=== PATIENT | female | born 1965 | race Caucasian/White ===

== ENCOUNTER 2025-06-06 09:01 | Outpatient (CLI) | payer BC | END 2025-06-06 09:02 | disposition home or self-care (01) | LOC: CSHRAD 09:01 | PROVIDERS: ATTEND Student in an Organized Health Care Education/Training Program | DX: M51.370 Other intervertebral disc degeneration, lumbosacral region with discogenic back pain only (principal); M43.9 Deforming dorsopathy, unspecified; M43.17 Spondylolisthesis, lumbosacral region | CPT/HCPCS: 72072; 72100 ==